=== PATIENT | female | born 2000 | race Caucasian/White ===

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

== ENCOUNTER 2019-09-14 10:55 | Emergency (ER) | payer BC ==
[2019-09-14 11:10] VITALS: BP 108/71
--- NOTE | 2019-09-14 11:24 | UC ---
Respiratory Complaint HPI - HPI Summary HPI Summary: cough x 3 days cough is dry , worse with deep breathing , better with rest nasal congestion , pnd , mild sore throat, no fever, no chills , no body aches, no sinus pain - History of Current Complaint Chief Complaint: UCRespiratory Stated Complaint: FEVER, COUGH, CONGESTION Time Seen by Provider: 09/14/19 11:18 Hx Obtained From: Patient Hx Last Menstrual Period: 08/14/19 Onset/Duration: Gradual Onset, Lasting Days - 3, Still Present Timing: Constant Severity Initially: Moderate Severity Currently: Moderate Pain Intensity: 0 Character: Cough: Nonproductive Aggravating Factors: Exertion, Deep Breaths Alleviating Factors: Nothing Associated Signs And Symptoms: Positive: URI, Nasal Congestion. Negative: Dyspnea, Fever, Chills - Allergies/Home Medications Allergies/Adverse Reactions: Allergies Allergy/AdvReac Type Severity Reaction Status Date / Time No Known Allergies Allergy Verified 09/14/19 11:10 Home Medications: Home Medications D-Methorphan/PE/Acetaminophen [Vicks Dayquil Cold & Flu] 1 cap PO ONCE PRN 09/14 [History Confirmed 09/14/19] Dm/Acetaminophen/Doxylamine [Vicks Nyquil Cold & Flu N 15-6.25-325 mg] 2 cap PO QPM PRN 09/14/19 [History Confirmed 09/14/19] Guaifen/Phenyleph/Acetaminophn [Mucinex Sinus-Max Severe] 1 tab PO Q24H PRN [History Confirmed 09/14/19] PMH/Surg Hx/FS Hx/Imm Hx Previously Healthy: Yes - Surgical History Surgical History: None - Family History Known Family History: Positive: None Negative: Diabetes - Social History Alcohol Use: Occasionally Substance Use Type: None Smoking Status (MU): Never Smoked Tobacco Review of Systems All Other Systems Reviewed And Are Negative: Yes Constitutional: Positive: Negative Skin: Positive: Negative Eyes: Positive: Negative ENT: Positive: Sore Throat, Nasal Discharge. Negative: Sinus Congestion, Sinus Pain/Tenderness Respiratory: Positive: Cough Is Patient Immunocompromised?: No Physical Exam Triage Information Reviewed: Yes Appearance: Well-Appearing, No Pain Distress, Well-Nourished Vital Signs: Initial Vital Signs Temp 98.3 F 09/14/19 11:04 Pulse 78 09/14/19 11:04 Resp 18 09/14/19 11:04 BP 108/71 09/14/19 11:04 Pulse Ox 100 09/14/19 11:04 Vital Signs Reviewed: Yes Eye Exam: Normal Eyes: Positive: Conjunctiva Clear ENT: Positive: Normal ENT inspection, Hearing grossly normal, Pharynx normal, Nasal congestion, Nasal drainage, TMs normal. Negative: Pharyngeal erythema, TM bulging, TM dull, TM red Neck: Positive: Supple, Nontender, No Lymphadenopathy Respiratory: Positive: Chest non-tender, Lungs clear, Normal breath sounds Cardiovascular: Positive: RRR, No Murmur, Pulses Normal Skin Exam: Normal Respiratory Course/Dx - Differential Dx/Diagnosis Provider Diagnosis: URI (upper respiratory infection) Discharge ED - Sign-Out/Discharge Documenting (check all that apply): Patient Departure All imaging exams completed and their final reports reviewed: No Studies - Discharge Plan Condition: Stable Disposition: HOME Patient Education Materials: Upper Respiratory Infection (ED) Forms: *School Release Referrals: No Primary Care Phys,NOPCP [Primary Care Provider] - If Needed - Billing Disposition and Condition Condition: STABLE Disposition: Home
== END 2019-09-14 11:25 | disposition home or self-care (01) ==
LOC: UCCORT 10:55
DX: J06.9 Acute upper respiratory infection, unspecified (principal)
CPT/HCPCS: 99211; G0463